=== PATIENT | female | born 1985 | race Caucasian/White ===

== ENCOUNTER 2021-10-01 08:00 | Outpatient (CLI) | payer OTHER ==
[2021-10-01 22:45] LABS: BACTERIAL VAGINOSIS DNA NEGATIVE (NEGATIVE)
[2021-10-01 22:46] LABS: CANDIDA GLABRATA DNA NEGATIVE (NEGATIVE); CANDIDA GROUP DNA NEGATIVE (NEGATIVE); CANDIDA KRUSEI DNA NEGATIVE (NEGATIVE); TRICHOMONAS VAGINALIS DNA NEGATIVE (NEGATIVE)
== END 2021-10-01 23:59 | disposition home or self-care (01) ==
LOC: LAB.N 08:00
PROVIDERS: ATTEND Registered Nurse
DX: N94.6 Dysmenorrhea, unspecified (principal); R30.0 Dysuria
CPT/HCPCS: 81514; 87086